=== PATIENT | male | born 1990 ===

== ENCOUNTER 2020-12-26 20:59 | Emergency (ER) | payer OTHER ==
[~2020-12-26] VITALS: Ht 175.3 cm; Wt 83.9 kg
== END 2020-12-26 22:45 | disposition home or self-care (01) ==
LOC: FSED 21:00
DX: S01.21XA Laceration without foreign body of nose, initial encounter (principal); W45.8XXA Other foreign body or object entering through skin, initial encounter; Y92.008 Other place in unspecified non-institutional (private) residence as the place of occurrence of the external cause; F17.210 Nicotine dependence, cigarettes, uncomplicated
CPT/HCPCS: 99282